=== PATIENT | female | born 1960 | race African-American/Black ===

== ENCOUNTER 2022-07-07 10:15 | Day surgery (SDC) | payer OTHER ==
[~2022-07-07] VITALS: Ht 165.1 cm; Wt 91.2 kg
[2022-07-07] MEDS ORDERED: fentaNYL citrate 0.05 MG/ML VIAL ONE (14:23)
[2022-07-07] MEDS ORDERED: LIDOCAINE 2% 100 MG/5 ML UJET TP ONE (14:23)
[2022-07-07] MEDS ORDERED: fentaNYL citrate 0.05 MG/ML VIAL IVP ONE (15:10)
== END 2022-07-07 16:10 | disposition home or self-care (01) ==
LOC: MMU 10:15 → MDS 10:15
PROVIDERS: ATTEND Internal Medicine Gastroenterology
DX: Z12.11 Encounter for screening for malignant neoplasm of colon (principal); K57.30 Diverticulosis of large intestine without perforation or abscess without bleeding; I10 Essential (primary) hypertension; F41.9 Anxiety disorder, unspecified; Z88.1 Allergy status to other antibiotic agents; Z79.82 Long term (current) use of aspirin; Z79.899 Other long term (current) drug therapy; Z20.822 Contact with and (suspected) exposure to COVID-19
CPT/HCPCS: 45378; 87426; J3010